=== PATIENT | female | born 2000 | race Caucasian/White ===

== ENCOUNTER 2021-06-18 06:32 | Inpatient (IN) | payer MEDICAID ==
[2021-06-18] VITALS (50 sets, daily range): BP systolic 99–155; BP diastolic 55–82
[~2021-06-18] VITALS: Ht 167.7 cm; Wt 66.1 kg
[2021-06-18] MEDS ORDERED: D5 LR IV SOLUTION 1,000 ML IV ONE (07:42)
[2021-06-18] MEDS ORDERED: LIDOCAINE/EPI 2% 1:200,00 (XYLOCAINE) 20 ML VIAL INJ PRN (08:00)
[2021-06-18] MEDS ORDERED: MINERAL OIL CONCENTRATE 99.9% 15 ML UDC TOP PRN (08:00)
[2021-06-18 08:04] LABS: BASOPHILS % (AUTO) 0 % (0-10); EOSINOPHILS # (AUTO) 0.1 10^3/uL (0.0-0.3); EOSINOPHILS % (AUTO) 1 % (0-10); HEMATOCRIT 31 % (35-52); HEMOGLOBIN 9.6 g/dL (11.5-16.0); LYMPHOCYTES # (AUTO) 2.1 10^3/uL (1.0-4.0); LYMPHOCYTES % (AUTO) 16 % (12-44); MEAN CORPUSCULAR HEMOGLOBIN 23 pg (25-34); MEAN CORPUSCULAR HGB CONC 31 g/dL (32-36); MEAN CORPUSCULAR VOLUME 75 fL (80-99); MEAN PLATELET VOLUME 9.7 fL (9.0-12.2); MONOCYTES # (AUTO) 0.8 10^3/uL (0.0-1.0); MONOCYTES % (AUTO) 6 % (0-12); NEUTROPHILS # (AUTO) 10.2 10^3/uL (1.8-7.8); NEUTROPHILS % (AUTO) 77 % (42-75); PLATELET COUNT 260 10^3/uL (130-400); WHITE BLOOD COUNT 13.3 10^3/uL (4.3-11.0)
[2021-06-18] MEDS ORDERED: OXYTOCIN PRE-MIX DRIP 500 ML IV ONE (08:08)
--- NOTE | 2021-06-18 08:08 | History & Physical-OB ---
OB - Chief Complaint & HPI Date/Time Date of Admission: Date of Admission: Jun 18, 2021 at 06:32 Date seen by a Provider: Jun 18, 2021 Time Seen by a Provider: 08:02 Chief Complaint/History OB-Reason for Admission/Chief: Induction of Labor Hx : 3 Hx Para: 2 Expected Date of Delivery: Jun 23, 2021 Gestational Age in Weeks: 39 Gestational Age in Days: 2 Other reason for admission: Advanced dilation, lives > 1 hr from hospital. History of Labs A neg, Ab neg, Rub Imm HIV/RPR/HepB/C NR Normal 1 hr GTT GBS neg Allergies and Home Medications Allergies Coded Allergies: No Known Drug Allergies (Unverified , 06/18/21) Patient Home Medication List Home Medication List Reviewed: Yes OB - History Hx of Present Care: Yes Ultrasounds: Normal mid trimester US Obstetrical Complications: None Medical Complications: None Information Induced Hypertension: No Maternal Gestational Diabetes: No Hemorrhage: No Obstetrical History Hx : 3 Hx Para: 2 Hx # Term Pregnancies: 2 Number of Living Children: 2 Delivery History Hx Dystocia: No Hx Forceps Assisted Delivery: No Hx Vacuum Extraction Assisted: No Hx Placenta Abnormality: No Hx Distress: No Hx Large For Gestational Age I: No Hx Small for Gestational Age I: No Hx Section: No Hx Vaginal Delivery Post C-Sec: No Hx Blood Disorders: No Adverse Rxn to Tranfusion: No Patient Past Medical History None Social History/Family History Alcohol Use: Denies Use Smoking Cessation: Never smoker Immunizations Tetanus Booster (TDap): Less than 5yrs (04/29/21) Rubella: immune RPR/VDRL: Negative GBS Status: Negative HBsAG: Negative OB - Admission Exam Physical Exam HEENT: NCAT Heart: Rhythm Normal Lungs: Clear Abdomen: Gravid Cervical Dilatation: 5cm Effacement: 100% Station: -1 Membranes: Intact Heart Rate: 140's Accelerations: Accelerations Present Decelerations: No Decelerations Short Term Variability: Present Contractions on Admission: None Ivan Scoring Tool (Modified) Dilation (cm): >5cm (3) Effacement (%): 80-100% (3) Descent/Station: -1,0 (2) Cervix Consistency: Soft (2) Cervix Position: Middle/Mid-Position (1) Add 1 point for: Each previous vaginal delivery (1) Ivan Score: 12 OB - Assessment/Plan/Diagnosis Assessment Assessment: induction of labor Admission Dx Third Trimester 39 week gestation Advance dilation Admission Status: Inpatient Order (span 2 midnights) Reason for Inpatient Admission: Labor Plan Plan: Induction Other Plan 20 yo @ 39.2 wga here for IOL for advance dilation Plan - Pitocin/AROM - Epidural ok when patient desires - Expectant management IVETH RIOS MD Jun 18, 2021 08:08
[2021-06-18] MEDS: D5 LR IV SOLUTION 1,000 ML IV SCH (08:14)
[2021-06-18] MEDS ORDERED: OXYTOCIN PRE-MIX DRIP 500 ML IV SCH ×2 (08:15→17:00)
[2021-06-18] MEDS ORDERED: fentaNYL 2 mcg/ml BUPIVA 0.125 100 ML ONE (09:06)
[2021-06-18] MEDS ORDERED: fentaNYL INJ 100 MCG/2 ML AMP ONE (10:04)
[2021-06-18] MEDS ORDERED: diphenhydrAMINE 50 MG/ML INJ (BENADRYL) IV PRN (12:45)
[2021-06-18] MEDS ORDERED: EPIDURAL (fentaNYL 2 MCG/ML BUPIVA 0.125%)100 ML BAG EPI PRN (12:45)
[2021-06-18] MEDS ORDERED: METOCLOPRAMIDE INJ 10 MG/2 ML (REGLAN) IV PRN (12:45)
[2021-06-18] MEDS ORDERED: ONDANSETRON 4 MG/2 ML (SDV) Z0FRAN IV PRN (12:45)
[2021-06-18] MEDS ORDERED: NALOXONE 0.4 MG/ML 1 ML (NARCAN) VIAL IV PRN ×2 (12:45)
[2021-06-18] MEDS ORDERED: LACTATED RINGERS 1,000 ML IV ONE (12:45)
--- NOTE | 2021-06-18 15:53 | Labor Progress Note ---
Labor Progress Note Labor Progress Note Date Seen by Provider: Jun 18, 2021 Time Seen by Provider: 15:52 Subjective: Pt denies complaints. Pain well controlled with epidural. Objective: / Reactive strip Assessment/Plan: Margie Kuhn is a (20 /Para 3 / 2,Gestational Age (wks)39.2 here for IOL for advanced dilation CEFM/TOCO Continue pitocin protocol AROM 1553 Anesthesia: Epidural Anticipate vaginal delivery. Vitals - Labs Vital Signs - I&O Vital Signs Date Time Temp Pulse Resp B/P (MAP) Pulse Ox O2 Delivery O2 Flow Rate FiO2 06/18/21 15:00 67 20 119/62 (81) 100 Room Air 06/18/21 14:45 70 20 114/64 (81) 100 Room Air 06/18/21 14:30 62 20 118/59 (78) 100 Room Air 06/18/21 14:15 75 20 111/56 (74) 100 Room Air 06/18/21 14:00 57 20 107/58 (74) 100 Room Air 06/18/21 13:45 57 20 111/63 (79) 100 Room Air 06/18/21 13:30 60 20 115/65 (82) 100 Room Air 06/18/21 13:15 70 20 113/65 (81) 100 Room Air 06/18/21 12:55 60 20 110/64 (79) 100 Room Air 06/18/21 12:45 36.4 68 20 116/70 (85) 99 Room Air 06/18/21 12:30 74 20 117/58 (77) 99 Room Air 06/18/21 12:15 65 20 116/64 (81) 99 Room Air 06/18/21 12:00 73 20 110/60 (77) 100 Room Air 06/18/21 11:45 85 20 118/62 (80) 100 Room Air 06/18/21 11:30 83 20 112/68 (83) 100 Room Air 06/18/21 11:15 83 20 105/60 (75) 100 Room Air 06/18/21 11:00 73 20 107/59 (75) 100 Room Air 06/18/21 10:45 75 20 104/58 (73) 100 Room Air 06/18/21 10:30 36.3 77 20 99/56 (70) 100 Room Air 06/18/21 10:20 74 20 101/56 (71) 100 Room Air 06/18/21 10:15 75 20 102/56 (71) 100 Room Air 06/18/21 10:10 77 20 112/63 (79) 100 Room Air 06/18/21 10:05 79 20 110/63 (79) 100 Room Air 06/18/21 10:00 83 20 115/61 (79) 100 Room Air 06/18/21 09:56 73 20 119/66 (83) Room Air 06/18/21 09:50 65 20 114/65 (81) Room Air 06/18/21 09:35 71 20 114/64 (81) Room Air 06/18/21 09:20 80 20 121/67 (85) Room Air 06/18/21 09:05 79 20 118/70 (86) Room Air 06/18/21 08:50 73 20 118/57 (77) Room Air 06/18/21 08:35 75 20 115/59 (77) Room Air 06/18/21 08:05 74 20 109/62 (78) Room Air 06/18/21 07:23 37.3 89 20 100 Room Air Labs Laboratory Tests 06/18/21 07:30: White Blood Count 13.3H, Red Blood Count 4.16, Hemoglobin 9.6L, Hematocrit 31L, Mean Corpuscular Volume 75L, Mean Corpuscular Hemoglobin 23L, Mean Corpuscular Hemoglobin Concent 31L, Red Cell Distribution Width 15.3H, Platelet Count 260, Mean Platelet Volume 9.7, Immature Granulocyte % (Auto) 0, Neutrophils (%) (Auto) 77H, Lymphocytes (%) (Auto) 16, Monocytes (%) (Auto) 6, Eosinophils (%) (Auto) 1, Basophils (%) (Auto) 0, Neutrophils # (Auto) 10.2H, Lymphocytes # (Auto) 2.1, Monocytes # (Auto) 0.8, Eosinophils # (Auto) 0.1, Basophils # (Auto) 0.0, Immature Granulocyte # (Auto) 0.1 IVETH RIOS MD Jun 18, 2021 15:53
[2021-06-18] MEDS ORDERED: BENZOCAINE/MENTHOL (DERMOPLAST) 56 ML CAN TP PRN (17:00)
[2021-06-18] MEDS ORDERED: WITCH HAZEL(TUCKS) 40 EA JAR TOP PRN (17:00)
--- NOTE | 2021-06-18 17:03 | OB Labor & Delivery Record ---
Vag Delivery Note Vag Delivery Note Date of Delivery: 06/18/21 Preoperative Diagnosis: Margie Kuhn is a (20 /Para 3 / 2, Gestational Age (wks)39.2 here for IOL for advanced dilation Postoperative Diagnosis: Same Surgeon: IVETH RIOS MD Film Processor: None Anesthesia: Epidural Delivery Type: @ 1637 Findings: Viable female , apgars 9/9, weight 7#3, 3270 grams Lacerations: 2nd degree perineal laceration Intact placenta with 3 vessel cord. No nuchal cord, body cord or shoulder dystocia Estimated Blood Loss: 120 ml Complications: None Condition: Stable Description of Procedure: The patient is a 20 year old female who presented for IOL. She was admitted and informed consent was obtained. Her labor course was unremarkable. She progressed to complete dilatation and began to push. She was then set up for delivery. The infant's head was delivered atraumatically in the NICOLE position. The shoulders and remainder of the 's body were then delivered without difficulty. Upon delivery, the head was held below the level of the perineum and the mouth and nares were bulb suctioned. The cord was doubly clamped and cut after 2 min delay and the was attended to by the pediatric staff on maternal abdomen. An intact placenta with 3-vessel cord delivered via Josué and there was found to be minimal bleeding.~ Vigorous fundal massage was performed and the fundus was found to be firm. IV oxytocin was given. Examination of the vagina and perineum revealed a 2nd laceration repaired in the usual fashion with 3-0 vicryl suture. Following the repair, sponge, instrument and needle counts were correct. Mom and baby were both in stable condition in the labor suite. Vitals - Labs Vital Signs - I&O Vital Signs Date Time Temp Pulse Resp B/P (MAP) Pulse Ox O2 Delivery O2 Flow Rate FiO2 06/18/21 15:45 76 20 116/63 (80) 100 Room Air 06/18/21 15:30 83 20 123/61 (81) 100 Room Air 06/18/21 15:15 36.4 65 20 118/67 (84) 100 Room Air 06/18/21 15:00 67 20 119/62 (81) 100 Room Air 06/18/21 14:45 70 20 114/64 (81) 100 Room Air 06/18/21 14:30 62 20 118/59 (78) 100 Room Air 06/18/21 14:15 75 20 111/56 (74) 100 Room Air 06/18/21 14:00 57 20 107/58 (74) 100 Room Air 06/18/21 13:45 57 20 111/63 (79) 100 Room Air 06/18/21 13:30 60 20 115/65 (82) 100 Room Air 06/18/21 13:15 70 20 113/65 (81) 100 Room Air 06/18/21 12:55 60 20 110/64 (79) 100 Room Air 06/18/21 12:45 36.4 68 20 116/70 (85) 99 Room Air 06/18/21 12:30 74 20 117/58 (77) 99 Room Air 06/18/21 12:15 65 20 116/64 (81) 99 Room Air 06/18/21 12:00 73 20 110/60 (77) 100 Room Air 06/18/21 11:45 85 20 118/62 (80) 100 Room Air 06/18/21 11:30 83 20 112/68 (83) 100 Room Air 06/18/21 11:15 83 20 105/60 (75) 100 Room Air 06/18/21 11:00 73 20 107/59 (75) 100 Room Air 06/18/21 10:45 75 20 104/58 (73) 100 Room Air 06/18/21 10:30 36.3 77 20 99/56 (70) 100 Room Air 06/18/21 10:20 74 20 101/56 (71) 100 Room Air 06/18/21 10:15 75 20 102/56 (71) 100 Room Air 06/18/21 10:10 77 20 112/63 (79) 100 Room Air 06/18/21 10:05 79 20 110/63 (79) 100 Room Air 06/18/21 10:00 83 20 115/61 (79) 100 Room Air 06/18/21 09:56 73 20 119/66 (83) Room Air 06/18/21 09:50 65 20 114/65 (81) Room Air 06/18/21 09:35 71 20 114/64 (81) Room Air 06/18/21 09:20 80 20 121/67 (85) Room Air 06/18/21 09:05 79 20 118/70 (86) Room Air 06/18/21 08:50 73 20 118/57 (77) Room Air 06/18/21 08:35 75 20 115/59 (77) Room Air 06/18/21 08:05 74 20 109/62 (78) Room Air 06/18/21 07:23 37.3 89 20 100 Room Air Labs Laboratory Tests 06/18/21 07:30: White Blood Count 13.3H, Red Blood Count 4.16, Hemoglobin 9.6L, Hematocrit 31L, Mean Corpuscular Volume 75L, Mean Corpuscular Hemoglobin 23L, Mean Corpuscular Hemoglobin Concent 31L, Red Cell Distribution Width 15.3H, Platelet Count 260, Mean Platelet Volume 9.7, Immature Granulocyte % (Auto) 0, Neutrophils (%) (Auto) 77H, Lymphocytes (%) (Auto) 16, Monocytes (%) (Auto) 6, Eosinophils (%) (Auto) 1, Basophils (%) (Auto) 0, Neutrophils # (Auto) 10.2H, Lymphocytes # (Auto) 2.1, Monocytes # (Auto) 0.8, Eosinophils # (Auto) 0.1, Basophils # (Auto) 0.0, Immature Granulocyte # (Auto) 0.1 IVETH RIOS MD Jun 18, 2021 17:03
[2021-06-18] MEDS: IBUPROFEN 600 MG (MOTRIN) TAB PO SCH ×2 (17:06→23:13)
[2021-06-18] MEDS: ACETAMINOPHEN 500 MG TAB (TYLENOL) PO SCH ×2 (17:06→23:14)
[2021-06-18] MEDS: CATHETER FLUSH 10 ML SYR IV SCH ×2 (20:30→23:14)
[2021-06-18] MEDS: DOCUSATE SODIUM 100 MG (COLACE) CAP PO SCH (23:13)
[2021-06-19] MEDS: D5 LR IV SOLUTION 1,000 ML IV SCH (01:01)
[2021-06-19 04:22] VITALS: BP 119/61
[2021-06-19 06:10] LABS: BASOPHILS # (AUTO) 0.1 10^3/uL (0.0-0.1); BASOPHILS % (AUTO) 0 % (0-10); EOSINOPHILS # (AUTO) 0.1 10^3/uL (0.0-0.3); EOSINOPHILS % (AUTO) 1 % (0-10); HEMATOCRIT 26 % (35-52); HEMOGLOBIN 7.6 g/dL (11.5-16.0); LYMPHOCYTES # (AUTO) 2.6 10^3/uL (1.0-4.0); LYMPHOCYTES % (AUTO) 19 % (12-44); MEAN CORPUSCULAR HEMOGLOBIN 23 pg (25-34); MEAN CORPUSCULAR HGB CONC 30 g/dL (32-36); MEAN CORPUSCULAR VOLUME 77 fL (80-99); MEAN PLATELET VOLUME 9.7 fL (9.0-12.2); MONOCYTES # (AUTO) 0.5 10^3/uL (0.0-1.0); MONOCYTES % (AUTO) 4 % (0-12); NEUTROPHILS # (AUTO) 10.3 10^3/uL (1.8-7.8); NEUTROPHILS % (AUTO) 76 % (42-75); PLATELET COUNT 203 10^3/uL (130-400); WHITE BLOOD COUNT 13.6 10^3/uL (4.3-11.0)
[2021-06-19] MEDS: CATHETER FLUSH 10 ML SYR IV SCH ×2 (06:23→06:24)
[2021-06-19] MEDS: IBUPROFEN 600 MG (MOTRIN) TAB PO SCH ×2 (06:23→12:01)
[2021-06-19] MEDS: ACETAMINOPHEN 500 MG TAB (TYLENOL) PO SCH ×2 (06:23→15:36)
[2021-06-19 07:30] VITALS: BP 104/57
[2021-06-19] MEDS: DOCUSATE SODIUM 100 MG (COLACE) CAP PO SCH (07:39)
[2021-06-19] MEDS ORDERED: IBUP-844 PO (07:55)
[2021-06-19] MEDS ORDERED: FERR325T18 PO (07:55)
[2021-06-19] MEDS ORDERED: DCS100C PO (07:55)
--- NOTE | 2021-06-19 10:36 | Anesthesia-Regional Post-Op ---
Regional Patient Condition Mental Status: Alert, Oriented x3 Circulation: Same as Pre-Op Headache: Absent Sensation: Full Recovery Motor Block: Absent Post Op Complications Complications None Follow Up Care/Instructions Patient Instructions None needed. Anesthesia/Patient Condition Patient is doing well, no complaints, stable vital signs, no apparent adverse anesthesia problems. No complications reported per nursing. MANE GUEVARA CRNA Jun 19, 2021 10:36
[2021-06-19 12:00] VITALS: BP 103/58
--- NOTE | 2021-06-19 13:47 | Discharge Summary ---
Discharge Summary Hospital Course Hospital Course Date of Admission: Jun 18, 2021 at 06:32 Admission Diagnosis : Induction of labor at full term for advanced cervical dilation and distance to hospital Family Physician/Provider: Iveth Wilson MD Date of Discharge: 06/19/21 Discharge Diagnosis: s/p spontaneous vaginal delivery asymptomatic acute blood loss anemia Hospital Course: Unremarkable vaginal delivery and course. Discussed COVID vaccine, she is interested but not yet ready. Labs and Pending Lab Test: Laboratory Tests 06/19/21 05:13: White Blood Count 13.6H, Red Blood Count 3.34L, Hemoglobin 7.6#L, Hematocrit 26L , Mean Corpuscular Volume 77L, Mean Corpuscular Hemoglobin 23L, Mean Corpuscular Hemoglobin Concent 30L, Red Cell Distribution Width 15.4H, Platelet Count 203, Mean Platelet Volume 9.7, Immature Granulocyte % (Auto) 0, Neutrophils (%) (Auto) 76H, Lymphocytes (%) (Auto) 19, Monocytes (%) (Auto) 4, Eosinophils (%) (Auto) 1, Basophils (%) (Auto) 0, Neutrophils # (Auto) 10.3H, Lymphocytes # (Auto) 2.6, Monocytes # (Auto) 0.5, Eosinophils # (Auto) 0.1, Basophils # (Auto) 0.1, Immature Granulocyte # (Auto) 0.1 Home Meds Active Ferrous Sulfate 325 Mg Tablet 325 Mg PO DAILY Dok (Docusate Sodium) 100 Mg Capsule 100 Mg PO BID Ibu (Ibuprofen) 600 Mg Tablet 600 Mg PO Q6HR PRN Assessment/Pt DC Instructions Follow up with Dr. Wilson in 6 weeks for visit. Discharge Diet: No Restrictions Activity as Tolerated: Yes (avoid strenuous activity x 6 weeks) Discharge Physical Examination Allergies: Coded Allergies: No Known Drug Allergies (Unverified , 06/18/21) General Appearance: No Apparent Distress, WD/WN Respiratory: Lungs Clear, Normal Breath Sounds Cardiovascular: Regular Rate, Rhythm, No Murmur Extremity: No Pedal Edema Skin: Normal Color, Warm/Dry Neurologic/Psychiatric: Alert, Normal Mood/Affect Copy Copies To 1: IVETH WILSON MD, BETHANY N MD Jun 19, 2021 13:47
[2021-06-19 15:30] VITALS: BP 113/58
[2021-06-19 19:21] VITALS: BP 113/58
== END 2021-06-19 19:15 | disposition home or self-care (01) | DRG 806 ==
LOC: LDRP 06:32
PROVIDERS: ADMIT Family Medicine; ATTEND Family Medicine
PROC: 10E0XZZ Delivery of Products of Conception, External Approach (ICD-10-PCS; principal; 2021-06-18)
PROC: 0KQM0ZZ Repair Perineum Muscle, Open Approach (ICD-10-PCS; 2021-06-18)
PROC: 10907ZC Drainage of Amniotic Fluid, Therapeutic from Products of Conception, Via Natural or Artificial Opening (ICD-10-PCS; 2021-06-18)
DX: O62.0 Primary inadequate contractions (principal); D62 Acute posthemorrhagic anemia; Z37.0 Single live birth; Z3A.39 39 weeks gestation of pregnancy; O70.1 Second degree perineal laceration during delivery; O90.81 Anemia of the puerperium
CPT/HCPCS: 36415; 83033; 85025; 86850; 86900; 86901

== ENCOUNTER 2022-10-04 17:10 | Emergency (ER) | payer MEDICAID ==
[~2022-10-04] VITALS: Ht 170.1 cm; Wt 58.4 kg
[~2022-10-04 17:10] MED LIST: DOCU-239 PO; FERR325T18 PO; IBUP-844 PO
--- NOTE | 2022-10-04 17:33 | ED General ---
General Chief Complaint: Chest Wall Stated Complaint: L SIDE RIB PAIN History of Present Illness Date Seen by Provider: Oct 04, 2022 Time Seen by Provider: 17:30 Initial Comments 39-year-old female with no PMH is here with complaints of left lower rib pain which has been going on for the past week. Patient was moving and has been picking up boxes and baskets possibly straining her side. Patient has not been drinking much water in the past couple of weeks. Denies chest pain, palpitations, abdominal pain, fever, shortness of breath.Left-sided 12th rib pain when she laughs, coughs, strains. Allergies and Home Medications Allergies Coded Allergies: No Known Drug Allergies (Unverified , 06/18/21) Patient Home Medication List Home Medication List Reviewed: Yes Docusate Sodium (Dok) 100 Mg Capsule, 100 MG PO BID Prescribed by: KAJAL THOMAS on 06/19/21 0755 Ferrous Sulfate (Ferrous Sulfate) 325 Mg Tablet, 325 MG PO DAILY Prescribed by: KAJAL THOMAS on 06/19/21 0755 Ibuprofen (Ibu) 600 Mg Tablet, 600 MG PO Q6HR PRN for PAIN-MODERATE (5-7) Prescribed by: KAJAL THOMAS on 06/19/21 0755 Review of Systems Review of Systems Constitutional: no symptoms reported EENTM: no symptoms reported Respiratory: no symptoms reported Cardiovascular: no symptoms reported Gastrointestinal: no symptoms reported Genitourinary: no symptoms reported Musculoskeletal: muscle cramps Skin: no symptoms reported Psychiatric/Neurological: No Symptoms Reported Hematologic/Lymphatic: No Symptoms Reported Immunological/Allergic: no symptoms reported Past Obutcic-Zzvzly-Iensxq Hx Immunizations Up To Date Tetanus Booster (TDap): Less than 5yrs Past Medical History Adverse Reaction/Blood Tranf: No Physical Exam Vital Signs Vital Signs - First Documented 10/04/22 17:25 Temp 36.3 Pulse 74 Resp 16 B/P (MAP) 112/62 (79) Pulse Ox 100 O2 Delivery Room Air Capillary Refill : Height, Weight, BMI Height: '" Weight: lbs. oz. kg; 23.50 BMI Method: General Appearance: No Apparent Distress, WD/WN HEENT: PERRL/EOMI Respiratory: Lungs Clear, Normal Breath Sounds, No Accessory Muscle Use, No Respiratory Distress, Other (Left-sided 12th rib tenderness) Cardiovascular: Regular Rate, Rhythm Gastrointestinal: Normal Bowel Sounds, Non Tender, Soft Back: No CVA Tenderness Extremity: Normal Range of Motion Neurologic/Psychiatric: Alert, Oriented x3, No Motor/Sensory Deficits Progress/Results/Core Measures Suspected Sepsis SIRS Temperature: Pulse: Respiratory Rate: Blood Pressure / Mean: Results/Orders My Orders Orders - PRAKASH BONILLA MD Ribs/Bilateral With Chest (10/04/22 17:32) Ketorolac Injection (Toradol Injection) (10/04/22 18:15) Medications Given in ED Current Medications Medications Dose Ordered Sig/Valerie Route Start Time Stop Time Status Last Admin Dose Admin Ketorolac Tromethamine 30 mg ONCE ONCE IM 10/04/22 18:15 10/04/22 18:20 DC 10/04/22 18:25 30 MG Vital Signs/I&O 10/04/22 17:25 Temp 36.3 Pulse 74 Resp 16 B/P (MAP) 112/62 (79) Pulse Ox 100 O2 Delivery Room Air Capillary Refill : Progress Note : Progress Note 1. MUSCLE STRAIN OF CHEST WALL: -X-ray ribs/chest: No acute finding -Toradol 30 mg IM stat -Advised ibuprofen as needed for pain, Lidoderm patch, heat application -Follow-up with PCP in the next 3 to 7 days -The patient was seen in the ED, and treated appropriately to presentation at a specific point in time. Patient is informed that there is a possibility that disease and illness can evolve and change in acuity rapidly or slowly after patient is discharged from the ER. Precautionary advice given to the patient for immediate return to ER if symptoms worsen or do not resolve, and to seek emergency care sooner rather than later. Pt also advised on the importance of PCP follow up and compliance with management and follow up plan with PCP and/or specialist, as this is part of the management plan. Pt verbally expressed understanding. Diagnostic Imaging Diagonstic Imaging: CT Plain Films/CT/US/NM/MRI: chest Comments [facility]. [place], [place] NAME: ALYSA STEVENS [facility] REC#: [id number] PT STATUS: REG ER : 2000 PHYSICIAN: PRAKASH BONILLA MD ADMIT DATE: 10/04/22/ER FS Draft Date of Exam:10/04/22 RIBS/BILATERAL WITH CHEST INDICATION: Left-sided rib pain. COMPARISON: None available. TECHNIQUE: Five radiographs of the chest and ribs dated 10/04/2022. FINDINGS: Bilateral nipple ornamentation is incidentally noted. The cardiac silhouette is within normal limits in size. No significant pulmonary vascular congestion. No definite pneumothorax, though the lung apices are excluded from the [id number], therefore these regions are not able to be well evaluated. The lungs are clear. No pleural effusion. No displaced or healing rib fracture. No suspicious radiopaque foreign body. IMPRESSION: No displaced or healing rib fracture. No large-volume pleural effusion or pneumothorax. Tiny pneumothoraces are not able to be evaluated for as the lung apices are excluded from the [id number]. Dictated on workstation # [id number] Dict: 10/04/[id number] Trans: 10/04/221751 [id number] Interpreted by: DELORES CABAN MD Electronically signed by: Departure Impression Primary Impression: Muscle strain of chest wall Disposition: 01 HOME, SELF-CARE Condition: Stable Departure-Patient Inst. Referrals: IVETH RIOS MD (PCP/Family) Primary Care Physician Patient Instructions: Muscle Strain ED, Costochondritis (DC) Add. Discharge Instructions: - Ibuprofen as needed for pain, Lidoderm patch which can be purchased [id number], heat application -Follow-up with PCP in the next 3 to 7 days All discharge instructions reviewed with patient and/or family. Voiced unders tanding. PRAKASH BONILLA MD Oct 04, 2022 17:33
--- NOTE | 2022-10-04 17:52 | Diagnostic Imaging Report ---
INDICATION: Left-sided rib pain. COMPARISON: None available. TECHNIQUE: Five radiographs of the chest and ribs dated 10/04/2022. FINDINGS: Bilateral nipple ornamentation is incidentally noted. The cardiac silhouette is within normal limits in size. No significant pulmonary vascular congestion. No definite pneumothorax, though the lung apices are excluded from the [id number], therefore these regions are not able to be well evaluated. The lungs are clear. No pleural effusion. No displaced or healing rib fracture. No suspicious radiopaque foreign body. IMPRESSION: No displaced or healing rib fracture. No large-volume pleural effusion or pneumothorax. Tiny pneumothoraces are not able to be evaluated for as the lung apices are excluded from the [id number]. Dictated by: Dictated on workstation # [id number]
[2022-10-04] MEDS ORDERED: KETOROLAC 30 MG/ML VIAL IM ONE (18:15)
[2022-10-04 18:35] VITALS: BP 112/62
== END 2022-10-04 18:34 | disposition home or self-care (01) ==
LOC: EDUNIT# 17:10 → ER FS 17:11
DX: S29.011A Strain of muscle and tendon of front wall of thorax, initial encounter (principal); Z28.310 Unvaccinated for COVID-19; X50.9XXA Other and unspecified overexertion or strenuous movements or postures, initial encounter
CPT/HCPCS: 71111